=== PATIENT | female | born 1950 | race Caucasian/White ===

== ENCOUNTER 2021-02-09 10:15 | Inpatient (IN) | payer OTHER ==
[~2021-02-09] VITALS: Ht 162.6 cm; Wt 66.2 kg
[2021-02-09] MEDS ORDERED: PREVACID30 MG PO (11:02)
[2021-02-09] MEDS ORDERED: PROBIOTIC1 EAC2 PO (11:03)
[2021-02-09] MEDS ORDERED: MAGNESIUM100 MG PO (11:03)
[2021-02-09] MEDS ORDERED: D3 + K2 DOTS 11 EACH PO (11:03)
[2021-02-18] MEDS ORDERED: INTESTINEX680 M1 PO (15:36)
[2021-02-18] MEDS ORDERED: LEVSIN/SL0.125 MG SL (15:37)
[2021-02-18] MEDS ORDERED: ULTRAM50 MG PO (15:38)
== END 2021-02-18 15:57 | disposition home or self-care (01) | DRG 331 ==
LOC: ADM 10:15 → EDSTATUS 10:15 → SURH 02-15 10:15 → O/R 02-15 12:55 → OB/GYN 02-15 12:55 → SURH 02-15 17:15 → OB/GYN 02-15 20:56
PROVIDERS: ADMIT Surgery; ATTEND Surgery
PROC: 0DBP4ZZ Excision of Rectum, Percutaneous Endoscopic Approach (ICD-10-PCS; 2021-02-15)
PROC: 0DJD8ZZ Inspection of Lower Intestinal Tract, Via Natural or Artificial Opening Endoscopic (ICD-10-PCS; 2021-02-15)
PROC: 0DBN4ZZ Excision of Sigmoid Colon, Percutaneous Endoscopic Approach (ICD-10-PCS; principal; 2021-02-15 17:15)
DX: K57.30 Diverticulosis of large intestine without perforation or abscess without bleeding (principal); K62.4 Stenosis of anus and rectum